=== PATIENT | female | born 1930 | race Caucasian/White ===

== ENCOUNTER 2017-08-12 23:27 | Emergency (ER) | payer OTHER ==
[~2017-08-12] VITALS: Ht 149.9 cm; Wt 49.9 kg
[2017-08-12 23:36] VITALS: BP 157/84
--- NOTE | 2017-08-12 23:42 | NUR ---
tech at bedside for ekg.
[2017-08-13] MEDS ORDERED: LORAZEPAM 1 MG TABLET ONE (00:10)
[2017-08-13] MEDS ORDERED: LORAZEPAM 1 MG TABLET PO ONE (00:30)
--- NOTE | 2017-08-13 00:33 | NUR ---
Patient discharged to home in stable condition via taxi. Written and verbal after care instructions given. Patient verbalizes understanding of instruction. Patient is ambulatory with steady gait, vss. nad noted. No further complaints.
== END 2017-08-13 00:35 | disposition home or self-care (01) ==
LOC: ER 23:28
DX: F41.1 Generalized anxiety disorder (principal); Z96.653 Presence of artificial knee joint, bilateral
CPT/HCPCS: A4606; Z7610